=== PATIENT | female | born 1960 | race Two or more races ===

== ENCOUNTER 2023-12-07 09:53 | Emergency (ER) | payer OTHER, MEDICAID ==
[~2023-12-07] VITALS: Ht 149.9 cm; Wt 70.0 kg
[2023-12-07] MEDS ORDERED: MELO7.5T7 PO (11:21)
[2023-12-07 11:23] VITALS: BP 125/65; PULSE 69; RESP 18; TEMP 97.8; O2SAT 99
[2023-12-07 11:52] LABS: Urine Bacteria None Seen /hpf (None Seen)
[2023-12-07 12:09] LABS: Urine Blood Negative /uL (Negative); Urine Clarity Clear (Clear); Urine Color Yellow (Yellow); Urine Protein, UAD TRACE (Negative); Urine Specific Gravity 1.028 (1.001-1.035); Urine Urobilinogen 2 mg/dL (Negative); Urine WBC 1 /hpf (0 - 5); Urine pH 6.5 (5.0-9.0)
[2023-12-07] MEDS: methylPREDNISolone SOD SUCC 125 MG/2 ML VL IM ONE (12:17)
[2023-12-07] MEDS: KETOROLAC TROMETH 30 MG/ML 1ML VIAL IM ONE (12:18)
[2023-12-07] MEDS: HYDROcodone-ACET 5/325MG TAB PO ONE (12:32)
== END 2023-12-07 13:14 | disposition home or self-care (01) ==
LOC: ER 09:58
DX: G89.29 Other chronic pain (principal); M54.50 Low back pain, unspecified; I10 Essential (primary) hypertension; E11.9 Type 2 diabetes mellitus without complications; E78.5 Hyperlipidemia, unspecified; Z88.6 Allergy status to analgesic agent
CPT/HCPCS: 81001; 96374; 96375; 99284; J1885; J2919